=== PATIENT | female | born 1985 | race Two or more races ===

== ENCOUNTER 2016-10-21 00:50 | Emergency (ER) | payer MEDICAID ==
[~2016-10-21] VITALS: Ht 165.1 cm; Wt 49.9 kg
[2016-10-21] MEDS ORDERED: ONDANSETRON 4 MG/2 ML VIAL IV ONE ×2 (01:30→03:00)
[2016-10-21] MEDS ORDERED: MORPHINE SULFATE 2 MG/1 ML DISP.SYRIN IV ONE (01:30)
[2016-10-21] MEDS ORDERED: IV NORMAL SALINE 1000 ML BAG IV ONE (01:30)
[2016-10-21 01:32] LABS: BASOPHILS % (AUTO) 0.5 % (0.0-2.0); EOSINOPHILS # (AUTO) 0.2 K/uL (0.0-0.7); EOSINOPHILS % (AUTO) 2.3 % (0.0-7.0); HEMOGLOBIN 13.3 G/DL (12.0-16.0); LYMPHOCYTES # (AUTO) 2.9 K/UL (0.8-4.8); LYMPHOCYTES % (AUTO) 36.9 % (20.5-51.5); MEAN CORPUSCULAR HEMOGLOBIN 26.6 UUG (27.0-31.0); MEAN CORPUSCULAR HGB CONC 32 g/dL (32.0-37.0); MEAN CORPUSCULAR VOLUME 82.4 FL (81.0-99.0); MONOCYTES # (AUTO) 0.5 K/UL (0.1-1.30); MONOCYTES % (AUTO) 6.4 % (0.0-11.0); NEUTROPHILS # (AUTO) 4.2 K/UL (1.8-8.9); NEUTROPHILS % (AUTO) 53.9 % (38.5-71.5); PLATELET COUNT (AUTO) 184 K/UL (150-450); RED BLOOD CELL COUNT(AUTO) 4.98 MIL/UL (4.2-5.4); WHITE BLOOD COUNT (AUTO) 7.8 K/UL (4.0-11.2)
[2016-10-21 01:35] LABS: *BILIRUBIN,URIN NEGATIVE (NEGATIVE); *BLOOD, URINE NEGATIVE (NEGATIVE); *CLARITY,URINE CLEAR (CLEAR); *COLOR,URINE YELLOW (YELLOW); *KETONES,URINE NEGATIVE (NEGATIVE); *PROTEIN,URINE NEGATIVE (NEGATIVE); *UROBILINOGEN,URINE 0.2 E.U./dl (NORMAL); LEUKOCYTE ESTERASE ,URINE NEGATIVE (NEGATIVE); NITRITE, URINE NEGATIVE (NEGATIVE); UGLUCOSE NEGATIVE (NEGATIVE)
[2016-10-21 01:35] LABS: CREATININE 0.9 mg/dL (0.6-1.3); POTASSIUM 3.5 mmol/L (3.5-5.1)
[2016-10-21 01:38] LABS: BACTERIA,URINE FEW /HPF (NONE SEEN); RBC,URINE 0-3 /HPF (0-3); SQUAMOUS EPITHELIAL CELL,UR FEW /HPF (NONE SEEN); WBC,URINE 0-3 /HPF (0-3)
[2016-10-21] MEDS ORDERED: MORPHINE SULFATE 2 MG/1 ML DISP.SYRIN ONE (01:45)
[2016-10-21] MEDS ORDERED: ONDANSETRON 4 MG/2 ML VIAL ONE ×2 (01:45→03:09)
[2016-10-21 01:46] LABS: BILIRUBIN,DIRECT 0.1 mg/dL (0.0-0.2); BILIRUBIN,TOTAL 0.4 mg/dL (0.2-1.0); TOTAL PROTEIN, SERUM 7.8 g/dL (6.4-8.2)
[2016-10-21] MEDS ORDERED: HYDROMORPHONE 1 MG/1 ML DISP.SYRIN IV ONE (02:30)
[2016-10-21] MEDS ORDERED: HYDROMORPHONE 1 MG/1 ML DISP.SYRIN ONE (02:32)
--- NOTE | 2016-10-21 02:33 | NUR ---
Female sales representative business courses, Mary Ann MALLORY, accompanied female patient for PELVIC EXAM.
--- NOTE | 2016-10-21 02:47 | NUR ---
Patient to radiology for CT scan via wheelchair, test negative.
--- NOTE | 2016-10-21 04:02 | NUR ---
Patient discharged to home in stable conditon. Written and verbal after care instructions given. Patient verbalizes understanding of instructions.
== END 2016-10-21 04:03 | disposition home or self-care (01) ==
LOC: ER 00:55
DX: R10.9 Unspecified abdominal pain (principal); D64.9 Anemia, unspecified
CPT/HCPCS: 36415; 76856; 84703; 85025; 87210; A4663; J1170; J2270; J2405; J7030